=== PATIENT | female | born 1995 | race Caucasian/White ===

== ENCOUNTER 2020-05-06 10:09 | Outpatient (REF) | payer OTHER, SELFPAY | END 2020-05-06 10:10 | disposition home or self-care (01) | LOC: HO.LAB 10:09 | PROVIDERS: Visit Provider Internal Medicine | DX: Z20.828 Contact with and (suspected) exposure to other viral communicable diseases (principal) | CPT/HCPCS: C9803; U0003 ==

== ENCOUNTER 2020-09-28 08:29 | Outpatient (REF) | payer BC, SELFPAY ==
[2020-09-28 11:06] LABS: SARS COV2 PCR INHOUSE NEGATIVE (Negative)
== END 2020-09-28 08:30 | disposition home or self-care (01) ==
LOC: HO.LAB 08:29
PROVIDERS: Visit Provider Internal Medicine
DX: Z20.822 Contact with and (suspected) exposure to COVID-19 (principal)
CPT/HCPCS: C9803; U0003

== ENCOUNTER 2025-06-05 10:05 | Emergency (ER) | payer MEDICAID, SELFPAY ==
--- NOTE | ~2025-06-05 | US_ITS ---
EXAMINATION: US OBSTETRICAL ULTRASOUND CLINICAL INFORMATION: Lower abdominal cramping, 12 weeks . COMPARISON: None available. LMP: 03/11/2025. Gestational age by maternal dates is 12 weeks and 2 days. Estimated date of delivery by maternal dates is 12/16/2025.. TECHNIQUE: Ultrasound of the maternal pelvis is performed using transabdominal transducer. M-mode Doppler is also performed. FINDINGS: It should be noted this exam was performed for viability only and should not be considered a formal survey. There is a single intrauterine gestational sac with visible yolk sac, embryo/fetus, and cardiac activity. Placenta is anterior. There is no significant subchorionic hemorrhage or hematoma. There is no evidence of abruption. Presentation is currently breech. HR: 150 beats per minute. CRL (crown rump length): 6.86 cm (13 weeks and 1 day +/- 4 days). KAYCEE (estimated date of delivery): 12/10/2025 +/- 4 days. MATERNAL ADNEXA: The right maternal ovary could not be definitively visualized. No right adnexal masses. The left maternal ovary measures 2.9 x 2.1 x 2.0 cm. Normal sonographic appearance. There is no significant maternal adnexal mass. No maternal pelvic ascites. US/US OB <= 14 weeks fetus IMPRESSION: 1. Exam performed for viability only. Single intrauterine gestation with ultrasound gestational age of 18 weeks and 1 day, +/- 4 days. No complication evident. heart rate of 150 bpm. 2. Estimated date of delivery is 12/10/2025 +/- 4 days. 3. No maternal adnexal mass or pelvic ascites. Right ovary could not be definitively visualized. Electronically signed by: Thanh Encarnacion MD 06/05/2025 01:33 PM [facility]
[2025-06-05 10:28] VITALS: BP 117/69; PULSE 106; RESP 18; TEMP 36.5; O2SAT 98; BMI 22.9
--- NOTE | 2025-06-05 10:28 | ED_ITS ---
HPI - URI/Sore Throat General Chief Complaint: Upper Respiratory Symptoms Stated Complaint: Cough Congestion Running Nose Time Seen by Provider: 06/05/25 12:42 Source: patient Mode of arrival: ambulatory Limitations: no limitations History of Present Illness ED Provider: Chantel Donato PA-C HPI Narrative: Patient is a 30 year old female with a history of current presenting to the emergency department today with a cough, body aches, and intermittent lower abdominal cramping. Patient states that over the last day she has felt generally unwell with a cough, body aches, and intermittent lower abdominal cramping. Patient denies any vaginal bleeding or discharge. Patient denies any other complaints at this time. Related Data Previous Rx's ?Medication ?Instructions ?Recorded amoxicillin 500 mg capsule 500 mg PO BID 10 days #20 c aps 06/05/25 Allergies Allergy/AdvReac Type Severity Reaction Status Date / Time No Known Allergies (No Known Allergy Verified 06/05/25 10:30 Allergies*) Review of Systems 2 Constitutional: Constitutional: Reports as per HPI Eyes: Eyes: Reports as per HPI ENT: Reports as per HPI Cardiovascular: Cardiovascular: Reports as per HPI Respiratory: Respiratory: Reports as per HPI Gastrointestinal: Gastrointestinal: Reports as per HPI Genitourinary: Genitourinary: Reports as per HPI Musculoskeletal: Musculoskeletal: Reports as per HPI Integumentary/Breasts: Skin/Breast: Reports as per HPI Neurologic: Reports as per HPI Psychiatric: Psychiatric: Reports as per HPI Endocrine: Endocrine: Reports as per HPI Hematologic/Lymphatic: Hematologic/Lymphatic: Reports as per HPI Allergic/Immunologic: Allergic/Immunologic: Reports as per HPI [facility] Past Medical History Attestation statement: The following information was validated with the patient. Source: old records reviewed and nursing notes reviewed Social History Social History Advance Directives: No Advance Directives Information Provided: No Physical Exam 2 Vital Signs: Vital Signs: Last Vital Signs Temp 97.7 F 06/05/25 13:56 Pulse 106 H 06/05/25 13:56 Resp 18 06/05/25 13:56 BP 117/69 06/05/25 13:56 Pulse Ox 98 06/05/25 13:56 O2 Del Method Room Air 06/05/25 13:56 BMI result Body Mass Index 22.9 Const: General: cooperative, no acute distress, alert and awake Nutritional Appearance: well nourished Orientation/consciousness: patient oriented x3 HEENT: Head: Yes normal to inspection and Yes atraumatic Ears: hearing grossly normal bilaterally and external ears normal General nose exam: Normal external nose present, no nasal discharge noted and no epistaxis Face and sinus: Yes normal facial exam, No abrasion and No laceration Mouth: Normal oral and palatal mucosa present, no drooling and no muffled voice Eyes: General: appearance normal, both eyes and all related structures P eriorbital: periorbital findings normal Eyelids: Yes eyelids normal C onjunctivae: conjunctivae normal Pupils: Equal, round and reactive pupils present EOM: EOMs intact bilaterally Neck: Neck: Yes normal visual inspection and Yes full ROM Resp: Effort & Inspection: normal respiratory effort and able to speak in complete sentences Neuro: General: patient oriented x3, moves all extremities and CN's II-XI intact bilaterally Cranial nerves: Yes Equal, round and reactive pupils present Cognition (Neuro): normal cognition Extrem: General: Yes normal to inspection, Yes full ROM and Yes capillary refill normal Psych: Appearance: grossly normal Mental Status: mental status grossly normal Affect: normal affect Attitude: cooperative Thought process: N ormal thought process present Thought content: Normal thought content present Insight: Good insight present (Psych) Course Course Course Narrative: This is an RME: Additional HPI, ROS, PE not included below will be deferred to primary provider. RME assessment and note performed by: Sue Cool PA-C This is a [id number]-female, 12 weeks , , who presents to the ER with a complaint of sore throat, cough, body aches, nasal congestion. Endorsing post tussive vomiting. Endorsing some lower abd cramping. No abnormal vaginal d/c. She has not had OB care as of yet, has not had US of this . Plan: Labs, viral swabs, strep swab, US Medical Decision Making Medical Decision Making MDM Narrative: Patient is a 30 year old female with a history of current presenting to the emergency department today with a cough, body aches, and intermittent lower abdominal cramping. Patient's physical exam was as noted in the physical exam portion of this note. Patient's blood work was unremarkable. Showed an appropriately elevated HCG given patient's status. Patient's COVID-19 and RSV testing were negative. Patient's influenza and strep testing were positive. Patient's US OBGYN showed no acute process and showed an appropriately aged fetus. I explained my physical exam findings as well as all test results to the patient. I answered all questions asked by the patient. I stressed the importance of the patient taking her medication as directed (either prescribed or as the over the counter packaging recommends). I stressed the importance of the patient following up with her primary care provider and her OBGYN. I stressed the importance of the patient returning to the emergency department immediately if her symptoms were to worsen or if she were to develop any dizziness, shortness of breath, difficulty breathing, chest pain, blurry vision, loss of vision, nausea, vomiting, abdominal pain, fever, chills, back pain, or any other complaints. Patient verbalized agreement and understanding with this treatment plan and discharge. Differential Diagnosis Differential Diagnoses: The differential diagnosis associated with the presentation includes COVID-19 Influenza RSV Strep pharyngitis Viral illness Admission/Observation Consideration of admission/observation: Escalation of care including admission/observation considered Patient would have been admitted to the hospital had her work up had any findings where hospital admission was appropriate and her clinical presentation warranted hospital admission. Lab Data [facility] Lab Attestation statement: I reviewed the patient's lab results. My interpretation of these results are in the [facility] Rationale portion of this note. 06/05/25 10:43 06/05/25 10:43 Labs: Lab Results 06/05/25 Range/Units 10:43 WBC 6.8 (4.8-10.8) X10*3/uL RBC 4.26 (4.20-5.50) X10*6/uL Hgb 12.7 (12.0-16.0) g/dl Hct 37.2 (37.0-47.0) % MCV 87.3 (80.0-98.0) fL MCH 29.8 (27.0-33.0) pg MCHC 34.1 (31.0-35.0) g/dl RDW 14.9 (11.0-16.0) % Plt Count 243 (160-400) X10*3/uL MPV 10.2 (9.4-12.3) fL Immature Gran % (Auto) 0.3 (0.0-0.4) % Neut % (Auto) 73.9 H (45-73) % Lymph % (Auto) 17.6 L (20-40) % [place] % (Auto) 7.9 (2-11) % Eos % (Auto) 0.0 (0-4) % Baso % (Auto) 0.3 (0-2) % Lymph # (Auto) 1.2 (1.2-4.9) X10*3/uL [place] # (Auto) 0.5 (0.1-1.2) X10*3/uL Eos # (Auto) 0.0 (0.0-0.4) X10*3/uL Baso # (Auto) 0.0 (0.0-0.2) X10*3/uL Abs Immat Gran (auto) 0.02 (0.00-0.03) X10*3/uL Absolute Neuts (auto) 5.1 (2.0-8.3) x10*3/uL Absolute Nucleated RBC 0.000 (0.0-0.012) X10*3/uL Nucleated RBC % (auto) 0.0 (0.0-0.2) /100WBC Sodium 135 (135-145) mmol/L Potassium 3.7 (3.3-5.1) mmol/L Chloride 104 (96-108) mmol/L Carbon Dioxide 24 (22-29) mmol/L Anion Gap 11 L (12-20) BUN 11 (9-16) mg/dL Creatinine 0.57 (0.5-1.4) mg/dL Estim Creat Clear Calc 139.1 Estimated GFR > 60 Random Glucose 95 (60-115) mg/dL Calcium 9.0 (8.4-10.2) mg/dL Total Bilirubin 0.2 (0.0-1.0) mg/dL AST 21 (5-31) U/L ALT 26 (0-31) U/L Alkaline Phosphatase 68 (39-117) U/L Total Protein 6.8 (6.5-8.0) g/dL Albumin 3.8 (3.5-5.0) g/dL Beta HCG, Quant [id number] mIU/mL Influenza Type A (PCR) POSITIVE A (Negative) Influenza Type B (PCR) NEGATIVE (Negative) RSV RNA Qual (PCR) NEGATIVE (Negative) SARS-CoV-2 RNA (RT-PCR) NEGATIVE (Negative) S. pyogenes GrpA ERIC Positive A (Negative) Independent Interpretation I performed an independent interpretation of an: Ultrasound Interpretation: My interpretation is in agreement with the radiologist's impression of this imaging study as written below. Reason for Exam: lower abd cramping, 12 weeks EXAMINATION: US OBSTETRICAL ULTRASOUND CLINICAL INFORMATION: Lower abdominal cramping, 12 weeks . COMPARISON: None available. LMP: 03/11/2025. Gestational age by maternal dates is 12 weeks and 2 days. Estimated date of delivery by maternal dates is 12/16/2025.. TECHNIQUE: Ultrasound of the maternal pelvis is performed using transabdominal transducer. M-mode Doppler is also performed. FINDINGS: It should be noted this exam was performed for viability only and should not be considered a formal survey. There is a single intrauterine gestational sac with visible yolk sac, embryo/fetus, and cardiac activity. Placenta is anterior. There is no significant subchorionic hemorrhage or hematoma. There is no evidence of abruption. Presentation is currently breech. HR: 150 beats per minute. CRL (crown rump length): 6.86 cm (13 weeks and 1 day +/- 4 days). KAYCEE (estimated date of delivery): 12/10/2025 +/- 4 days. MATERNAL ADNEXA: The right maternal ovary could not be definitively visualized. No right adnexal masses. The left maternal ovary measures 2.9 x 2.1 x 2.0 cm. Normal sonographic appearance. There is no significant maternal adnexal mass. No maternal pelvic ascites. US/US OB <= 14 weeks fetus IMPRESSION: 1. Exam performed for viability only. Single intrauterine gestation with ultrasound gestational age of 18 weeks and 1 day, +/- 4 days. No complication evident. heart rate of 150 bpm. 2. Estimated date of delivery is 12/10/2025 +/- 4 days. 3. No maternal adnexal mass or pelvic ascites. Right ovary could not be definitively visualized. Electronically signed by: Thanh Encarnacion MD 06/05/2025 01:33 PM [facility] Dictated By: Thanh Encarnacion MD Signed By: Electronically signed by Thanh Encarnacion MD 06/05/25 9119 Radiology Impression Discussion of test interpretation with radiology: I have reviewed the radiologist's reading. Prescription Management I considered prescription management with: Antiviral (I considered prescribing tamiflu however, the patient's current clinical presentation did not warrant this. ) and Antibiotic (patient prescribed an antibiotic for strep pharyngitis) Discharge Plan Discharge Clinical Impression: Influenza A, Strep pharyngitis Qualifiers: Weeks of gestation: 18 weeks Qualified Code(s): Z3A.18 - 18 weeks gestation of Patient Disposition: Home, Self-Care Instructions: Strep Throat (DC), Influenza (DC) Additional Instructions: Your lab work today was reassuring. Your ultrasound showed an appropriate fetus for your gestational age. You are positive for both Influenza and Strep pharyngitis. Please be sure to replace your toothbrush after 24 hours on your antibiotic. Take your antibiotic as prescribed. Follow up with your OBGYN. IF you are prescribed home medications and/or you are taking over the counter medications at home - it is very important you continue to do so as prescribed / directed unless told otherwise by a healthcare provider. Follow up with your primary care provider. Do your best to stay well hydrated and rest. Return to the emergency department immediately if your symptoms worsen or if you develop any numbness, tingling, dizziness, shortness of breath, difficulty breathing, chest pain, blurry vision, loss of vision, nausea, vomiting, abdominal pain, fever, chills, back pain, or any other complaints. L If you do not have a primary care provider - call any of the below numbers to establish and follow up with a primary care provider. [facility] Primary Care ([place]) [phone] [place] [address], [id number] [facility] Primary Care ([address] [place]) [phone] [place] [address], [address] [facility], [address] [facility] Primary Care ([address] [place]) [phone] [place] [address], [address] [facility], [address] [facility] Primary Care ([place]) [phone] [place] [address], [address] [facility], [address] [facility] Family Medicine [phone] [address] [facility], [address] Please see the information below about our Patient Portal. If you are not yet enrolled in the [facility] Patient Portal, you will receive an enrollment email invitation following your visit to any [facility] setting. You may also self-enroll in the Patient Portal by visiting our website: [email or web address] The following information is required to access the Patient Portal: - Your [facility] Medical Record Number - Your personal home email address (must match what is in your electronic medical record, Registration staff can assist with this) - Name - Date of Capabilities of the Patient Portal: - Message some providers - View upcoming appointments - Access your health summary, medical history, and visit history - View current conditions and allergies - View procedure and lab results - View your medications, including guidelines, side effects, and precautions - Complete pre-appointment questionnaires requested by your provider - Ready summary reports of your office visits and procedures To access the Patient Portal Mobile [employer], follow these directions: - Search [employer] in the [employer] Store or [employer] Store - Download the [employer]ma - Search for [facility] - Enter your login/password Prescriptions: New amoxicillin 500 mg capsule 500 mg PO BID 10 Days Qty: 20 0RF [facility] Stand Alone Forms: Work/School Release Interventions: ED Discharge Assessment Last Done: 06/05/25 13:56 Discharge Date/Time: 06/05/25 13:57 Print Language: [place]
[2025-06-05 10:55] LABS: MANUAL DIFF FLAG NO
[2025-06-05 10:58] LABS: Hematocrit 37.2 % (37.0-47.0); Hemoglobin 12.7 g/dl (12.0-16.0); Imm Gran Abs Auto 0.02 X10*3/uL (0.00-0.03); Imm Gran Pct Auto 0.3 % (0.0-0.4); Lymphocytes Absolute Auto 1.2 X10*3/uL (1.2-4.9); Mean Corpuscular HGB Conc 34.1 g/dl (31.0-35.0); Mean Corpuscular Hemoglobin 29.8 pg (27.0-33.0); Mean Corpuscular Volume 87.3 fL (80.0-98.0); NRBC Abs Auto 0.000 X10*3/uL (0.0-0.012); NRBC Pct Auto 0.0 /100WBC (0.0-0.2); Platelet Count 243 X10*3/uL (160-400); Red Blood Count 4.26 X10*6/uL (4.20-5.50); White Blood Count 6.8 X10*3/uL (4.8-10.8)
[2025-06-05 11:09] LABS: IDNOW Serial# 6674DD1D; Strep A Nucleic Acid Positive (Negative)
[2025-06-05 11:24] LABS: Alanine Aminotransferase 26 U/L (0-31); Albumin Level 3.8 g/dL (3.5-5.0); Alkaline Phosphatase 68 U/L (39-117); Anion Gap 11 (12-20); Aspartate Amino Transferase 21 U/L (5-31); Blood Urea Nitrogen 11 mg/dL (9-16); Calcium 9.0 mg/dL (8.4-10.2); Carbon Dioxide 24 mmol/L (22-29); Chloride 104 mmol/L (96-108); Creatinine Clr Calc Pharmacy 139.1; Estimated Glomerular Filt Rate > 60; Potassium 3.7 mmol/L (3.3-5.1); Sodium 135 mmol/L (135-145); Total Protein 6.8 g/dL (6.5-8.0)
[2025-06-05 11:38] LABS: Resp Syncy Virus RNA Qual PCR NEGATIVE (Negative); SARS COV2 PCR INHOUSE NEGATIVE (Negative)
[2025-06-05 13:56] VITALS: BP 117/69; PULSE 106; RESP 18; TEMP 36.5; O2SAT 98
== END 2025-06-05 13:57 | disposition home or self-care (01) ==
PROVIDERS: Physician Assistant Medical; Emergency Provider Emergency Medicine
DX: J10.1 Influenza due to other identified influenza virus with other respiratory manifestations (principal); J02.0 Streptococcal pharyngitis; R05.9 Cough, unspecified; R09.89 Other specified symptoms and signs involving the circulatory and respiratory systems; M79.10 Myalgia, unspecified site; R25.2 Cramp and spasm; Z03.818 Encounter for observation for suspected exposure to other biological agents ruled out; Z79.899 Other long term (current) drug therapy
CPT/HCPCS: 76801; 80053; 84702; 85025; 87637; 87651; 99282; 99284

== ENCOUNTER → 2025-06-05 10:31 | Outpatient (BNV) | payer MEDICAID, SELFPAY | PROVIDERS: Emergency Provider Emergency Medicine; Visit Provider Radiology Diagnostic Radiology | DX: O26.891 Other specified pregnancy related conditions, first trimester (principal); R10.30 Lower abdominal pain, unspecified; Z3A.12 12 weeks gestation of pregnancy | CPT/HCPCS: 76801 ==